=== PATIENT | male | born 1980 | race Caucasian/White ===

== ENCOUNTER 2018-12-27 13:57 | Inpatient (IN) | payer OTHER ==
[~2018-12-27] VITALS: Ht 182.9 cm; Wt 104.5 kg
[~2018-12-27 13:57] MED LIST: CLIN300C54 PO; CLIN300C85 PO; NO HOME MEDS
[2018-12-27 16:23] LABS: ALANINE AMINOTRANSFERASE 53 U/L (12-78); ALBUMIN 4.2 G/DL (3.4-5.0); ALBUMIN/GLOBULIN RATIO 1.2 (1.1-1.5); ALKALINE PHOSPHATASE 63 IU/L (46-116); ANION GAP 10 (8-16); ASPARTATE AMINO TRANSFERASE 33 U/L (10-37); BILIRUBIN,TOTAL 1.2 MG/DL (0.1-1.0); BLOOD UREA NITROGEN 20 MG/DL (7-18); BUN/CREATININE RATIO 19.6 (5.4-32.0); CALCIUM 9.5 MG/DL (8.5-10.1); CHLORIDE 103 MMOL/L (99-107); CREATININE 1.02 MG/DL (0.60-1.10); GLUCOSE 137 MG/DL (70-104); LIPASE 110 U/L (73-393); POTASSIUM 3.6 MMOL/L (3.5-5.1); SODIUM 140 MMOL/L (135-145); TOTAL CARBON DIOXIDE 27.1 MMOL/L (24-32); TOTAL PROTEIN 7.7 G/DL (6.4-8.2); eGFR 83 ML/MIN
[2018-12-27 16:25] LABS: BASOPHILS % (AUTO) 0.3 % (0-1); EOSINOPHILS # (AUTO) 0.1 X10'3 (0-0.9); EOSINOPHILS % (AUTO) 0.5 % (0-6); HEMATOCRIT 48.3 % (42.0-52.0); HEMOGLOBIN 15.7 g/dl (14.0-17.9); LYMPHOCYTES # (AUTO) 1.6 X10'3 (1.1-4.8); LYMPHOCYTES % (AUTO) 12.7 % (21-51); MEAN CORPUSCULAR HEMOGLOBIN 27.4 PG (27.0-31.0); MEAN CORPUSCULAR HGB CONC 32.5 g/dL (33.0-36.5); MEAN CORPUSCULAR VOLUME 84.3 FL (78-98); MEAN PLATELET VOLUME 8.1 FL (7.4-10.4); MONOCYTES # (AUTO) 0.8 X10'3 (0-0.9); MONOCYTES % (AUTO) 6.3 % (2-12); NEUTROPHILS # (AUTO) 9.9 X10'3 (1.8-7.7); NEUTROPHILS % (AUTO) 80.2 % (42-75); PLATELET COUNT 372 X10'3 (140-440); RED BLOOD COUNT 5.74 X10'6 (4.70-6.10); RED CELL DISTRIBUTION WIDTH 12.7 % (11.5-14.5); WHITE BLOOD COUNT 12.4 X10'3 (4.5-11.0)
[2018-12-27 16:36] LABS: PARTIAL THROMBOPLASTIN TIME 30 SECONDS (22-32); PROTHROMBIN TIME 9.9 SECONDS (9.0-12.0)
--- NOTE | 2018-12-27 19:18 | NUR ---
PLACED IN ROOM, PT STATES "SOB", COLOR PINK, RESP RATE 18 EVEN AND UNLABORED, SAO2= 100 ON RA. TENDER TO PALP ON RUQ.
--- NOTE | 2018-12-27 19:20 | NUR ---
URINAL GIVEN, UNABLE TO URINATE AT THIS TIME, STATES, "JUST WENT 10 MIN AGO", NOT NOTIFIED WHILE WAITING IN LOBBY THAT URINE SPECIMIN WAS NEEDED.
[2018-12-27 20:01] LABS: CLARITY,URINE CLEAR (Clear); COLOR,URINE YELLOW (Yellow); GLUCOSE, URINE NEGATIVE (Neg); KETONES,URINE 15 mg/dl (Neg); LEUKOCYTE ESTERASE ,URINE NEGATIVE (Neg); NITRITES, URINE NEGATIVE (Neg); OCCULT BLOOD,URINE NEGATIVE (Neg); PH,URINE 6.5 (4.8-8.0); PROTEIN,URINE TRACE mg/dl (Neg)
--- NOTE | 2018-12-27 20:09 | NUR ---
PT KEEPS REMOVING MONITORING EQUIPTMENT MAKING IT DIFFICULT TO DO HOURLY VITALS.
[2018-12-27 20:12] LABS: UA COLLECTION TYPE VOIDED
[2018-12-27 20:20] LABS: BACTERIA,URINE FEW /HPF (Neg); MUCUS STRANDS MANY /LPF (Neg); RBC,URINE 0-2 /HPF (0-2); SQUAMOUS EPITHELIAL CELL,UR FEW /LPF (FEW); WBC,URINE 0-4 /HPF (0-4)
--- NOTE | 2018-12-27 20:43 | NUR ---
US AT BEDSIDE.
[2018-12-27] MEDS ORDERED: ketorolac trometh. 30mg/ml inj. IV ONE (21:50)
[2018-12-27] MEDS ORDERED: NO HOME MEDS (22:34)
[2018-12-27] MEDS ORDERED: piperacillin/tazo 3.375gm/50ml 50 ML IV ONE (22:45)
[2018-12-28] VITALS (11 sets, daily range): BP systolic 105–139; BP diastolic 66–85
[2018-12-28] MEDS ORDERED: ondansetron/PF 4mg/2ml inj IV PRN ×2 (01:30→18:50)
[2018-12-28] MEDS: normal saline 1000ml 1,000 ML IV SCH ×3 (01:30→22:12)
--- NOTE | 2018-12-28 05:00 | NUR ---
SLEEPING, NO CHANGES IN STATUS.
[2018-12-28] MEDS ORDERED: sincalide inj 0 MCG in normal saline 50ml IV soln 50 ML IV ONE (08:00)
[2018-12-28] MEDS ORDERED: piperacillin/tazo 3.375gm/50ml 50 ML IV SCH (08:00)
--- NOTE | 2018-12-28 08:23 | NUR ---
patient in [facility]
[2018-12-28] MEDS: piperacillin/tazo 3.375gm/50ml 50 ML IV SCH ×2 (11:00→19:00)
--- NOTE | 2018-12-28 12:39 | NUR ---
Patient in room ED 16. I have received report from RANDALL Kim. Awaiting patient arrival.
--- NOTE | 2018-12-28 12:40 | NUR ---
called report to Keya, informed her patient is in nuc-med currently but patient will be transported up to her as soon as he is done.
--- NOTE | 2018-12-28 18:30 | NUR ---
Problems reprioritized. Patient report given, questions answered & plan of care reviewed with Katerin PEREIRA.
--- NOTE | 2018-12-28 18:31 | NUR ---
OR charge called, asked for patient to be in gown only, running IV, empty bladder, no wipe down or shower, and abx in chart. All of these completed. Patient awaiting OR.
--- NOTE | 2018-12-28 18:34 | NUR ---
Report called to Ana Rodriguez RN
[2018-12-28] MEDS ORDERED: LIDOcaine 1% 30ml preserv. free vial ONE (18:38)
[2018-12-28] MEDS ORDERED: BUPIVAcaine/PF 2.5mg/ml (0.25%) 10ml vial ONE (18:39)
--- NOTE | 2018-12-28 18:45 | NUR ---
Received report from Karena Jones Rounded on pt stating he is going to take him to surgery shortly.
[2018-12-28] MEDS ORDERED: ringers solution, lacted 1,000 ML IV SCH (18:50)
[2018-12-28] MEDS ORDERED: morphine 4 MG/ML inj SYRINge IV PRN ×2 (18:50)
[2018-12-28] MEDS ORDERED: proCHLORperazine 10 MG/2 ml inj IV PRN (18:50)
[2018-12-28] MEDS ORDERED: meperidine/PF 25mg/ml syringe IV PRN ×3 (18:50)
[2018-12-28] MEDS ORDERED: metoprolol tartrate 1mg/ml inj IV ONE (18:55)
[2018-12-28] MEDS ORDERED: sevoflurane 250ml liquid IH ONE (18:55)
[2018-12-28] MEDS ORDERED: rocuronium 10mg/ml inj IV ONE (18:55)
--- NOTE | 2018-12-28 19:02 | NUR ---
pt was taken down to OR
[2018-12-28] MEDS ORDERED: midazolam 2 mg/2 ml injection ONE (19:08)
[2018-12-28] MEDS ORDERED: propofol inj 20 ML IV ONE (19:10)
[2018-12-28] MEDS ORDERED: fentaNYL /PF 50mcg/ml 5ml ampule ONE (19:10)
[2018-12-28] MEDS ORDERED: LIDOcaine 2% (20mg/ml) 5ml vial ONE (19:10)
[2018-12-28] MEDS ORDERED: ondansetron/PF 4mg/2ml inj ONE (19:23)
[2018-12-28] MEDS ORDERED: dexamethasone sod phosphate 4mg/ml inj. ONE (19:23)
[2018-12-28] MEDS ORDERED: ketorolac trometh. 30mg/ml inj. ONE (19:23)
--- NOTE | 2018-12-28 20:40 | NUR ---
Received from OR via MEDICAL BED, accompanied by Anesthesiologist DR. DISLA and report given by Anesthesiolgist. PT ARRIVED SLEEPY, O2 VIA MASK AT 10L. PULSES AND DENTAL INSURANCE COORDINATOR WNL. DRESSING TO ABD CDI. SCDS IN PLACE.
[2018-12-28] MEDS ORDERED: HYDROcodone/acetaminophen 5mg/325mg tablet PO PRN (21:00)
--- NOTE | 2018-12-28 21:19 | NUR ---
Report called to receiving nurse FAHAD PEREIRA. Transferred via MEDICAL BED TO ROOM 349B WITH NO Belongings THAT WERE BROUGHT WITH PT. PT FULLY AWAKE DENIES PAIN. VSS ON 2L NC. Special Issues communicated to receiving nurse.
--- NOTE | 2018-12-28 21:27 | NUR ---
Received report from Ana PEREIRA in OR, pt arrived via hospital bed, awake and alert, on RA pt is sating 88% put pt on 2L of o2 via NC, reoriented pt to room, performed physical assessment.
[2018-12-29 00:15] VITALS: BP 116/56
[2018-12-29 01:15] VITALS: BP 113/86
[2018-12-29] MEDS: piperacillin/tazo 3.375gm/50ml 50 ML IV SCH ×3 (02:54→19:12)
[2018-12-29 04:59] VITALS: BP 104/62
[2018-12-29 05:42] LABS: BASOPHILS # (AUTO) 0.2 X10'3 (0-0.2); BASOPHILS % (AUTO) 1.1 % (0-1); EOSINOPHILS % (AUTO) 0 % (0-6); HEMATOCRIT 46.8 % (42.0-52.0); HEMOGLOBIN 15.1 g/dl (14.0-17.9); LYMPHOCYTES # (AUTO) 0.8 X10'3 (1.1-4.8); MEAN CORPUSCULAR HEMOGLOBIN 27.4 PG (27.0-31.0); MEAN CORPUSCULAR HGB CONC 32.2 g/dL (33.0-36.5); MEAN CORPUSCULAR VOLUME 85.2 FL (78-98); MEAN PLATELET VOLUME 8.8 FL (7.4-10.4); MONOCYTES # (AUTO) 0.6 X10'3 (0-0.9); MONOCYTES % (AUTO) 3.7 % (2-12); NEUTROPHILS # (AUTO) 14.6 X10'3 (1.8-7.7); NEUTROPHILS % (AUTO) 90.2 % (42-75); PLATELET COUNT 301 X10'3 (140-440); RED BLOOD COUNT 5.49 X10'6 (4.70-6.10); RED CELL DISTRIBUTION WIDTH 12.7 % (11.5-14.5); WHITE BLOOD COUNT 16.2 X10'3 (4.5-11.0)
[2018-12-29 05:55] LABS: ALANINE AMINOTRANSFERASE 47 U/L (12-78); ALBUMIN 3.2 G/DL (3.4-5.0); ALBUMIN/GLOBULIN RATIO 0.8 (1.1-1.5); ALKALINE PHOSPHATASE 53 IU/L (46-116); ANION GAP 12 (8-16); ASPARTATE AMINO TRANSFERASE 25 U/L (10-37); BILIRUBIN,TOTAL 2.1 MG/DL (0.1-1.0); BLOOD UREA NITROGEN 13 MG/DL (7-18); BUN/CREATININE RATIO 13.7 (5.4-32.0); CALCIUM 8.6 MG/DL (8.5-10.1); CHLORIDE 104 MMOL/L (99-107); CREATININE 0.95 MG/DL (0.60-1.10); GLUCOSE 130 MG/DL (70-104); POTASSIUM 4.2 MMOL/L (3.5-5.1); SODIUM 138 MMOL/L (135-145); TOTAL CARBON DIOXIDE 22.4 MMOL/L (24-32); eGFR 90 ML/MIN
--- NOTE | 2018-12-29 06:31 | NUR ---
Problems reprioritized. Patient report given, questions answered & plan of care reviewed with Fidelia PEREIRA.
[2018-12-29 07:00] VITALS: BP 120/66
[2018-12-29] MEDS: HYDROcodone/acetaminophen 10/325mg tab PO PRN ×2 (08:15→19:12)
[2018-12-29] MEDS: normal saline 1000ml 1,000 ML IV SCH ×2 (08:16→16:48)
[2018-12-29 11:00] VITALS: BP 101/58
--- NOTE | 2018-12-29 16:58 | NUR ---
EDUCATED PT ON IMPORTANCE OF USING URINAL SO NURSING CAN GET AN ACCURATE AMOUNT OF OUTPUT. PT CONTINUES TO US THE TOILET AND NOT ALLOW MEASURING.
[2018-12-29 18:00] VITALS: BP 117/75
--- NOTE | 2018-12-29 18:36 | NUR ---
Problems reprioritized. Patient report given, questions answered & plan of care reviewed with Zenobia PEREIRA.
--- NOTE | 2018-12-29 18:40 | NUR ---
Patient in room [facility]. I have received report from Fidelia PEREIRA and had the opportunity to ask questions and assume patient care. Patient sitting up in bed eating dinner, in no distress, respirations even and unlabored.
[2018-12-30] VITALS: BP 103/57
[2018-12-30] MEDS: piperacillin/tazo 3.375gm/50ml 50 ML IV SCH ×2 (02:57→10:21)
[2018-12-30] MEDS: normal saline 1000ml 1,000 ML IV SCH ×2 (03:00→13:30)
--- NOTE | 2018-12-30 06:09 | NUR ---
Problems reprioritized. Patient report given, questions answered & plan of care reviewed with Fidelia PEREIRA.
--- NOTE | 2018-12-30 06:53 | NUR ---
Patient in room [facility]. I have received report from Zenobia PEREIRA and had the opportunity to ask questions and assume patient care.
[2018-12-30 06:55] LABS: BASOPHILS # (AUTO) 0.1 X10'3 (0-0.2); BASOPHILS % (AUTO) 0.4 % (0-1); EOSINOPHILS # (AUTO) 0.1 X10'3 (0-0.9); EOSINOPHILS % (AUTO) 0.5 % (0-6); HEMATOCRIT 43.3 % (42.0-52.0); HEMOGLOBIN 14.1 g/dl (14.0-17.9); LYMPHOCYTES # (AUTO) 2.8 X10'3 (1.1-4.8); LYMPHOCYTES % (AUTO) 21.5 % (21-51); MEAN CORPUSCULAR HGB CONC 32.7 g/dL (33.0-36.5); MEAN CORPUSCULAR VOLUME 85.7 FL (78-98); MEAN PLATELET VOLUME 8.8 FL (7.4-10.4); MONOCYTES # (AUTO) 0.9 X10'3 (0-0.9); MONOCYTES % (AUTO) 7.1 % (2-12); NEUTROPHILS # (AUTO) 9.2 X10'3 (1.8-7.7); NEUTROPHILS % (AUTO) 70.5 % (42-75); PLATELET COUNT 299 X10'3 (140-440); RED BLOOD COUNT 5.05 X10'6 (4.70-6.10); RED CELL DISTRIBUTION WIDTH 12.8 % (11.5-14.5); WHITE BLOOD COUNT 13.1 X10'3 (4.5-11.0)
[2018-12-30 06:59] LABS: ALANINE AMINOTRANSFERASE 37 U/L (12-78); ALBUMIN 2.9 G/DL (3.4-5.0); ALBUMIN/GLOBULIN RATIO 0.8 (1.1-1.5); ALKALINE PHOSPHATASE 45 IU/L (46-116); ANION GAP 8 (8-16); ASPARTATE AMINO TRANSFERASE 19 U/L (10-37); BILIRUBIN,TOTAL 1.3 MG/DL (0.1-1.0); BLOOD UREA NITROGEN 13 MG/DL (7-18); BUN/CREATININE RATIO 12.6 (5.4-32.0); CALCIUM 8.7 MG/DL (8.5-10.1); CHLORIDE 107 MMOL/L (99-107); CREATININE 1.03 MG/DL (0.60-1.10); GLUCOSE 97 MG/DL (70-104); POTASSIUM 3.9 MMOL/L (3.5-5.1); SODIUM 140 MMOL/L (135-145); TOTAL CARBON DIOXIDE 25.1 MMOL/L (24-32); TOTAL PROTEIN 6.6 G/DL (6.4-8.2); eGFR 82 ML/MIN
[2018-12-30 08:00] VITALS: BP 119/70
[2018-12-30] MEDS: HYDROcodone/acetaminophen 10/325mg tab PO PRN (10:25)
[2018-12-30 11:00] VITALS: BP 115/61
--- NOTE | 2018-12-30 16:36 | NUR ---
call to Dr. Maynard to inform of Meliza 1.3 MD states pt can go home but he will be in later to provide pain medication script. Call to Dr. Bergeron to inform about Dr. Maynard plan.
[2018-12-30] MEDS ORDERED: CIPR-230 PO (17:12)
--- NOTE | 2018-12-30 17:40 | NUR ---
Reviewed D/C instructions with pt. pt states understanding. Medication called into [facility] on [address]. Waiting for his ride.
--- NOTE | 2018-12-30 18:25 | NUR ---
Received report from RANDALL Mistry. Patient is awake and alert on room air, in no apparent distress. Call light and items of frequent use within reach. Waiting for ride to be discharged home. Will continue to monitor.
--- NOTE | 2018-12-30 18:36 | NUR ---
Problems reprioritized. Patient report given, questions answered & plan of care reviewed with Kristin PEREIRA.
--- NOTE | 2018-12-30 18:42 | NUR ---
Patient in no apparent distress; denies any pain or discomfort; IV taken out, all belongings sent with, all vital signs stable. Patient walked out with steady gait.
[2018-12-30] MEDS ORDERED: lactobacillus rhamnosus 10,000 MMU CELLS/CAPSULE PO SCH (20:00)
== END 2018-12-30 18:42 | disposition home or self-care (01) | DRG 357 ==
LOC: ER 13:58 → ED HOLD 12-28 01:34 → SUR 3N 12-28 12:49
PROVIDERS: ADMIT Internal Medicine; ATTEND Internal Medicine
PROC: 0DBU0ZZ Excision of Omentum, Open Approach (ICD-10-PCS; 2018-12-28)
PROC: CF141ZZ Planar Nuclear Medicine Imaging of Gallbladder using Technetium 99m (Tc-99m) (ICD-10-PCS; 2018-12-28)
PROC: 0FT44ZZ Resection of Gallbladder, Percutaneous Endoscopic Approach (ICD-10-PCS; principal; 2018-12-28 18:55)
DX: K42.0 Umbilical hernia with obstruction, without gangrene (principal); K80.00 Calculus of gallbladder with acute cholecystitis without obstruction; E66.9 Obesity, unspecified; Z87.891 Personal history of nicotine dependence; Z68.31 Body mass index [BMI] 31.0-31.9, adult
CPT/HCPCS: 96365; 96375; 99285; Z7506; 36415; 71045; 76700; 78226; 80053; 81001; 83690; 84484; 85025; 85610; 85730; 87070; 93005; A6402; A7000; A9537; G0378; J1100; J1885; J2001; J2175; J2250; J2405; J2543; J2704; J3010; J3490; J7030; J7120